=== PATIENT | female | born 1990 | race Caucasian/White ===

== ENCOUNTER → 2017-01-20 | Outpatient (CLI) | payer OTHER ==
[2017-01-20 10:12] LABS: CH 29.4; CHCM 34.5; HCT 35.2 % (34.0-46.0); HDW 2.89; HGB 12.4 gm/dL (11.4-16.0); MCH 30.3 pg (25.0-35.0); MCHC 35.3 g/dL (31.0-37.0); MCV 85.9 fL (80.0-100.0); Mean Platelet Volume 6.9; RDW 14.5 % (11.5-15.5); WBC 13.8 k/uL (3.8-10.6)
[2017-01-20 10:22] LABS: Glucose 88 mg/dL (74-99); Non-African American GFR(MDRD) >60 (>60 ml/min/1.73 sqM)
[2017-01-20 10:53] LABS: Hepatitis B Surface Ag Index 0.05
[2017-01-20 16:36] LABS: Treponemal Ab Non-Reactive (Non-Reactive)
[2017-01-21 03:27] LABS: Toxoplasma Antibody (IgG) <3.0 IU/mL (<7.2)
[2017-01-21 09:32] LABS: Alpha Fetoprotein 94.2 ng/mL; Alpha Fetoprotein (M.O.M) 1.58 (Negative); B-HCG (M.O.M.) 1.83; Gestational Age (days) 6; Human Chorionic Gonadotropin 28.2 IU/mL; Inhibin A (M.O.M.) 0.89; Interpretation SeeBelow; Maternal Age at EDD (Yrs) 25; Smoker No; Unconjugated Estriol (M.O.M.) 1.06
== END | disposition home or self-care (01) ==
LOC: LABWHC1 09:41
PROVIDERS: ATTEND Obstetrics & Gynecology
DX: Z34.82 Encounter for supervision of other normal pregnancy, second trimester (principal)
CPT/HCPCS: 36415; 82105; 82565; 82677; 82947; 84702; 85027; 86336; 86762; 86777; 86778; 86780; 86850; 86900; 86901; 87340; 87390

== ENCOUNTER → 2017-02-11 | Outpatient (CLI) | payer OTHER ==
[2017-02-11 11:18] LABS: CH 29.7; CHCM 33.3; HCT 33.3 % (34.0-46.0); HDW 3.11; HGB 11.1 gm/dL (11.4-16.0); MCHC 33.5 g/dL (31.0-37.0); MCV 89.8 fL (80.0-100.0); Mean Platelet Volume 7.3; RBC 3.71 m/uL (3.80-5.40); WBC 12.9 k/uL (3.8-10.6)
== END | disposition home or self-care (01) ==
LOC: LABWHC1 10:01
PROVIDERS: ATTEND Obstetrics & Gynecology
DX: Z34.82 Encounter for supervision of other normal pregnancy, second trimester (principal)
CPT/HCPCS: 36415; 82950; 85027

== ENCOUNTER 2017-04-11 19:01 | Outpatient (CLI) | payer OTHER ==
[2017-04-11 19:35] LABS: Glucose,Whole Blood 72 mg/dL (75-99)
[2017-04-11 21:00] VITALS: BP 131/79; PULSE 125; RESP 18; TEMP 97
[2017-04-11 21:16] LABS: Aty Lym Flag Moderate; CH 27.3; HCT 34.9 % (34.0-46.0); HDW 3.49; HGB 11.1 gm/dL (11.4-16.0); Hypochromasia Moderate; MCH 28.3 pg (25.0-35.0); MCHC 31.9 g/dL (31.0-37.0); MCV 88.7 fL (80.0-100.0); Mean Platelet Volume 6.7; Poikilocytosis Slight; RBC 3.93 m/uL (3.80-5.40); RDW 14.8 % (11.5-15.5); WBC 7.3 k/uL (3.8-10.6); WBC (Perox) 7.47
[2017-04-11 21:44] LABS: Add Differential Manual Differential
[2017-04-11 21:46] LABS: Nucleated Red Blood Cells 0 /100 WBC (0-0); Polychromasia Present; Total Cells Counted 100
--- NOTE | 2017-04-11 22:04 | P.MSEPDOC ---
Presenting Problems - Arrival Data Date of Arrival on Unit: 04/11/17 Time of Arrival on Unit: 19:01 Mode of Transport: Ambulatory - Complaint OB-Reason for Admission/Chief Complaint: Dizziness Medical History - Information : 2 Para: 1 Term: 1 : 0 Abortions: Spontaneous or Elective: 0 Number of Living Children: 1 Review of Systems - Review of Systems Constitutional: No problems Breast: No problems ENT: No problems Cardiovascular: No problems Respiratory: No problems Gastrointestinal: No problems Genitourinary: No problems Musculoskeletal: No problems Neurological: No problems Skin: No problems Vital Signs - Temperature Temperature: 97.0 F Temperature Source: Temporal Artery Scan - Pulse Right Pulse Rate: 125 Pulse Assessment Method: Pulse Oximetry - Respirations Respiratory Rate: 18 Oxygen Delivery Method: Room Air O2 Sat by Pulse Oximetry: 98 - Blood Pressure Right Arm Blood Pressure: 131/79 Blood Pressure Mean: 96 Blood Pressure Source: Automatic Cuff Medical Screen Scoring (Pre) - Cervical Exam Dilation: 0 cm = 0 Effacement: Exam Deferred Membranes: Intact - Uterine Contractions Frequency: N/A Duration: > 40 seconds = 2 Intensity: N/A - Maternal Vital Signs Maternal Temperature: N/A Maternal Blood Pressure: N/A Signs of Preeclampsia: N/A Maternal Respirations: N/A - Maternal Trauma Maternal Trauma: N/A - Assessment Baseline FHR: 148 Heart Rate - NICHD Category: Category I (Normal) = 0 NST: Reactive Position: N/A - Total Score Total Score (Pre): 2 - Level of Risk Level of Risk: Low (0-5) Physician Notification (Pre) - Physician Notified Physician Notified Date: 04/11/17 Physician Notified Time: 19:51 Physician/Practitioner Notifed:: Dr. Crook Spoke With: Dr. Crook New Order Received: Yes - Notification Comment Comment: Orders to wait for reactive FFN and cervical check. Disposition - Disposition OB Disposition: Discharge to home I agree with the RN Medical Screening Exam: Yes Risk & Benefit of care provided described in d/c instruction: Yes Diagnosis: FALSE LABOR BEFORE 37 COMPLETED WEEKS OF GEST, THIRD TRI
== END 2017-04-11 22:02 | disposition home or self-care (01) ==
LOC: FBPOP 19:01
PROVIDERS: ATTEND Obstetrics & Gynecology
DX: O47.03 False labor before 37 completed weeks of gestation, third trimester (principal); Z3A.33 33 weeks gestation of pregnancy
CPT/HCPCS: 59025; 84443; 85025; G0463; 99213

== ENCOUNTER 2017-04-13 10:23 | Outpatient (CLI) | payer OTHER ==
[2017-04-13] MEDS ORDERED: LACTATED RINGERS 1,000 ML IV SCH (11:00)
[2017-04-13 11:58] LABS: Potassium 3.7 mmol/L (3.5-5.1)
[2017-04-13 12:09] LABS: Aty Lym Flag Moderate; CH 27.3; CHCM 31.9; HDW 3.52; HGB 11.2 gm/dL (11.4-16.0); Hypochromasia Slight; MCH 27.7 pg (25.0-35.0); MCHC 32.2 g/dL (31.0-37.0); MCV 86.2 fL (80.0-100.0); Mean Platelet Volume 7.6; Poikilocytosis Slight; RBC 4.06 m/uL (3.80-5.40); WBC 6.1 k/uL (3.8-10.6); WBC (Perox) 6.06
[2017-04-13 12:14] LABS: Appearance,Urine Cloudy (Clear); Bacteria,Urine Rare /hpf; Bilirubin,Urine Negative (Negative); Glucose,Urine (UA) Negative (Negative); Ketones,Urine Negative (Negative); Leukocyte Esterase,Urine Large (Negative); Nitrite,Urine Negative (Negative); PH, Urine 6.5 (5.0-8.0); Particle Count 18964; Protein,Urine Negative (Negative); RBC,Urine 2 /hpf (0-5); Specific Gravity,Urine 1.004 (1.001-1.035); Squamous Epithelial Cell,Urine 11 /hpf (0-4); UA Billing (MACRO vs. MICRO) MICRO; Urobilinogen,Urine <2.0 mg/dL (<2.0); WBC,Urine 13 /hpf (0-5)
[2017-04-13 12:40] LABS: Add Differential Manual Differential
[2017-04-13 12:44] LABS: Manual Review Performed; Nucleated Red Blood Cells 0 /100 WBC (0-0); Total Cells Counted 100
[2017-04-13 13:15] VITALS: BP 125/74; PULSE 140; RESP 18; TEMP 98.3
--- NOTE | 2017-05-11 08:11 | P.MSEPDOC ---
Presenting Problems - Arrival Data Date of Arrival on Unit: 04/13/17 Time of Arrival on Unit: 10:25 Mode of Transport: Ambulatory - Complaint OB-Reason for Admission/Chief Complaint: Other Comment: pt came due to fever at 0430 this am of 102.7 Medical History - Information : 2 Para: 1 Term: 1 : 0 Abortions: Spontaneous or Elective: 0 Number of Living Children: 1 - Gestational Age Gestational Age by SABI (wks/days): 33 Weeks and 5 Days Review of Systems - Review of Systems Constitutional: No problems Breast: No problems ENT: No problems Respiratory: No problems Gastrointestinal: No problems Genitourinary: No problems Musculoskeletal: No problems Neurological: No problems Skin: No problems Vital Signs - Temperature Temperature: 98.3 F Temperature Source: Oral - Pulse Right Brachial Pulse Rate: 140 Pulse Assessment Method: Automatic Cuff - Respirations Respiratory Rate: 18 Oxygen Delivery Method: Room Air - Blood Pressure Right Arm Blood Pressure: 125/74 Blood Pressure Mean: 91 Medical Screen Scoring (Pre) - Uterine Contractions Frequency: > 5 minutes apart = 1 Duration: > 40 seconds = 2 Intensity: N/A - Maternal Vital Signs Maternal Temperature: N/A Signs of Preeclampsia: N/A Maternal Respirations: N/A - Maternal Trauma Maternal Trauma: N/A - Assessment Baseline FHR: 140 Heart Rate - NICHD Category: Category I (Normal) = 0 NST: Reactive Position: N/A Station: N/A - Total Score Total Score (Pre): 3 - Level of Risk Level of Risk: Low (0-5) Physician Notification (Pre) - Physician Notified Physician Notified Date: 04/13/17 Physician Notified Time: 10:53 Physician/Practitioner Notifed:: Dr. Huff Spoke With: Dr. Huff New Order Received: Yes - Notification Comment Comment: orders to obtain labs, flu swab, ffn cervical exam, and give IVF Medical Screen Scoring (Post) - Cervical Exam Dilation: 1-3 cm = 1 Membranes: Intact - Uterine Contractions Frequency: > 5 minutes apart = 1 Duration: > 40 seconds = 2 Intensity: N/A - Maternal Vital Signs Maternal Temperature: N/A Maternal Blood Pressure: N/A Signs of Preeclampsia: N/A Maternal Respirations: N/A - Maternal Trauma Maternal Trauma: N/A - Assessment Heart Rate: 140 Heart Rate - NICHD Category: Category I (Normal) = 0 NST: Reactive Position: N/A Station: N/A - Total Score Total Score (Post): 4 - Post Treatment Level of Risk Post Treatment Level of Risk: Low (0-5) Physician Notification (Post) - Physician Notified Physician Notified Date: 04/13/17 Physician Notified Time: 12:30 Physician/Practitioner Notified:: Dr. Huff Spoke With: Dr. Huff New Order Received: Yes - Notification Comment Comment: Dr. Huff given results of labs, and negative FFN, contracton pattern , orders to discharge pt home, Disposition - Disposition OB Disposition: Triage, Discharge to home, Written follow up instructions reviewed Discharge Date: 04/13/17 Discharge Time: 13:00 I agree with the RN Medical Screening Exam: Yes Risk & Benefit of care provided described in d/c instruction: Yes Diagnosis: FALSE LABOR AT OR AFTER 37 COMPLETED WEEKS OF GESTATION
== END 2017-04-13 13:00 | disposition home or self-care (01) ==
LOC: FBPOP 10:23
PROVIDERS: ATTEND Obstetrics & Gynecology
DX: O47.1 False labor at or after 37 completed weeks of gestation (principal); Z3A.33 33 weeks gestation of pregnancy
CPT/HCPCS: 59025; 96360; 96361; 93005; 82731; 80051; 85025; 81001; 87502; G0463; 99214

== ENCOUNTER 2017-04-20 12:15 | Inpatient (IN) | payer OTHER ==
[2017-04-20] MEDS ORDERED: SODIUM CHLORIDE 0.9% 500 ML IV STA (12:40)
[2017-04-20 13:20] LABS: Anisocytosis Slight; Aty Lym Flag Moderate; CH 28.3; CHCM 33.2; HCT 33.3 % (34.0-46.0); HDW 3.51; HGB 10.7 gm/dL (11.4-16.0); MCH 27.6 pg (25.0-35.0); MCHC 32.1 g/dL (31.0-37.0); Mean Platelet Volume 7.7; Poikilocytosis Slight; RBC 3.87 m/uL (3.80-5.40); RDW 17.5 % (11.5-15.5); WBC 5.6 k/uL (3.8-10.6); WBC (Perox) 5.99
[2017-04-20 13:21] LABS: ALT 87 U/L (9-52); AST 54 U/L (14-36); Alkaline Phosphatase 163 U/L (38-126); Anion Gap 8 mmol/L; Blood Urea Nitrogen 6 mg/dL (7-17); Calcium 8.2 mg/dL (8.4-10.2); Carbon Dioxide 23 mmol/L (22-30); Chloride 107 mmol/L (98-107); Glucose 96 mg/dL (74-99); Non-African American GFR(MDRD) >60 (>60 ml/min/1.73 sqM); Potassium 4.2 mmol/L (3.5-5.1); Sodium 138 mmol/L (137-145)
[2017-04-20 13:22] LABS: INR 0.9 (<1.2); Prothrombin Time 9.3 sec (9.0-12.0)
[2017-04-20] MEDS ORDERED: RX INFO: IV CONTRAST WAS GIVEN 1 EACH MISC MISCELLANE PRN (13:32)
--- NOTE | 2017-04-20 13:36 | XR ---
EXAMINATION TYPE: XR chest 2V DATE OF EXAM: 04/20/2017 COMPARISON: Chest x-ray August 06, 2012 HISTORY: Cough and shortness of breath TECHNIQUE: Frontal and lateral views of the chest are obtained. FINDINGS: There is poor inspiration with patchy lower lung opacities. No large pleural effusion or pneumothorax is seen bilaterally. The cardiac silhouette size is within normal limits. The osseous structures are intact. IMPRESSION: Poor inspiration with new patchy bibasilar infiltrate and/or atelectasis.
[2017-04-20 13:44] LABS: Add Differential Manual Differential
[2017-04-20 13:48] LABS: Manual Review Performed; Nucleated Red Blood Cells 0 /100 WBC (0-0); Total Cells Counted 100
[2017-04-20 13:51] LABS: Polychromasia Present
[2017-04-20 13:53] LABS: Reactive Lymphocytes Present
--- NOTE | 2017-04-20 14:14 | ED ---
SOB HPI - General Chief Complaint: Shortness of Breath Stated Complaint: SOB/Cough Time Seen by Provider: 04/20/17 12:32 Source: patient, RN notes reviewed Mode of arrival: ambulatory Limitations: no limitations - History of Present Illness Initial Comments: 27-year-old female presents emergency Department chief complaint shortness of breath. Patient states she's had increased shortness with the last 3 days with exertion. Patient was sent here from OBs office to rule out PE. She states she did dry hacking cough. Denies fever denies chills. No history of blood clots. Patient is A0. Patient states she is currently approximately 35 weeks . Patient denies any palpitations with the denies any dysuria, hematuria, abdominal pain. Patient denies any headache or dizziness. - Related Data Home Medications Medication Instructions Recorded Confirmed Acetaminophen Tab [Tylenol Tab] 650 mg PO Q4H PRN 04/20/17 04/20/17 Jxz-Mbyy-Apxmv Acid 1 cap PO DAILY 04/20/17 04/20/17 [-U Capsule (formulary)] Allergies Allergy/AdvReac Type Severity Reaction Status Date / Time No Known Allergies Allergy Verified 04/20/17 12:36 Review of Systems ROS Statement: Those systems with pertinent positive or pertinent negative responses have been documented in the HPI. ROS Other: All systems not noted in ROS Statement are negative. Past Medical History Past Medical History: No Reported History Additional Past Medical History / Comment(s): OB history: THis is her first and she has had care with me since 5 weeks. AB+, abs neg, Hep Bneg, RPR NR. normal 1hr GTT. GBS neg. History of Any Multi-Drug Resistant Organisms: None Reported Past Surgical History: No Surgical Hx Reported Past Anesthesia/Blood Transfusion Reactions: No Reported Reaction Past Psychological History: No Psychological Hx Reported Smoking Status: Never smoker Past Alcohol Use History: None Reported Past Drug Use History: None Reported General Exam Limitations: no limitations General appearance: alert, in no apparent distress Head exam: Present: atraumatic, normocephalic, normal inspection Neck exam: Present: normal inspection. Absent: tenderness, meningismus, lymphadenopathy Respiratory exam: Present: normal lung sounds bilaterally. Absent: respiratory distress, wheezes, rales, rhonchi, stridor Cardiovascular Exam: Present: normal rhythm, tachycardia, normal heart sounds. Absent: systolic murmur, diastolic murmur, rubs, gallop, clicks GI/Abdominal exam: Present: soft, normal bowel sounds. Absent: distended, tenderness, guarding, rebound, rigid Skin exam: Present: warm, dry, intact, normal color. Absent: rash Course Vital Signs 04/20/17 04/20/17 04/20/17 12:22 13:08 14:37 Temperature 97.8 F 98.4 F 98.7 F Pulse Rate 140 H 129 H 122 H Respiratory 20 18 18 Rate Blood Pressure 121/85 118/74 128/84 O2 Sat by Pulse 98 97 98 Oximetry Medical Decision Making - Medical Decision Making 27-year-old female presented for tachycardia, SOB, chest pain concern for possible PE. CT was nondiagnostic study. [facility] and [facility] for ultrasound the lower extremity, echo and further evaluation. - Lab Data Result diagrams: 04/20/17 13:00 04/20/17 13:00 Lab Results 04/20/17 04/20/17 04/20/17 Range/Units 13:00 13:00 13:00 WBC 5.6 (3.8-10.6) k/uL RBC 3.87 (3.80-5.40) m/uL Hgb 10.7 L (11.4-16.0) gm/dL Hct 33.3 L (34.0-46.0) % MCV 86.0 (80.0-100.0) fL MCH 27.6 (25.0-35.0) pg MCHC 32.1 (31.0-37.0) g/dL RDW 17.5 H (11.5-15.5) % Plt Count 153 (150-450) k/uL Neutrophils % (Manual) 47 % Lymphocytes % (Manual) 48 % Monocytes % (Manual) 4 % Eosinophils % (Manual) 1 % Neutrophils # (Manual) 2.63 (1.3-7.7) k/uL Lymphocytes # (Manual) 2.69 (1.0-4.8) k/uL Monocytes # (Manual) 0.22 (0-1.0) k/uL Eosinophils # (Manual) 0.06 (0-0.7) k/uL Nucleated RBCs 0 (0-0) /100 WBC Manual Slide Review Performed Reactive Lymphocytes Present Polychromasia Present Poikilocytosis Slight Anisocytosis Slight PT 9.3 (9.0-12.0) sec INR 0.9 (<1.2) APTT 23.0 (22.0-30.0) sec D-Dimer 21.06 H (<0.60) mg/L FEU Sodium 138 (137-145) mmol/L Potassium 4.2 (3.5-5.1) mmol/L Chloride 107 (98-107) mmol/L Carbon Dioxide 23 (22-30) mmol/L Anion Gap 8 mmol/L BUN 6 L (7-17) mg/dL Creatinine 0.50 L (0.52-1.04) mg/dL Est GFR (MDRD) Af Amer >60 (>60 ml/min/1.73 sqM) Est GFR (MDRD) Non-Af >60 (>60 ml/min/1.73 sqM) Glucose 96 (74-99) mg/dL Calcium 8.2 L (8.4-10.2) mg/dL Total Bilirubin 1.0 (0.2-1.3) mg/dL AST 54 H (14-36) U/L ALT 87 H (9-52) U/L Alkaline Phosphatase 163 H (38-126) U/L Total Protein 6.0 L (6.3-8.2) g/dL Albumin 2.8 L (3.5-5.0) g/dL 04/20/17 14:14 EKG performed at 12:53 sinus tachycardia rate of 132 ID 144 QRS 72 QT/QTc to 82/ 417 Disposition Clinical Impression: Tachycardia, Exertional shortness of breath, Disposition: ADMITTED IP TO THIS [facility] Condition: Stable Referrals: None,Stated [Primary Care Provider] - 1-2 days
--- NOTE | 2017-04-20 14:52 | CT ---
EXAMINATION TYPE: CT chest angio for PE DATE OF EXAM: 04/20/2017 COMPARISON: CTA chest August 06, 2012 HISTORY: SOB, cough CT DLP: 300.4 mGycm. Automated Exposure Control for Dose Reduction was Utilized. CONTRAST: CTA scan of the thorax is performed with IV Contrast, patient injected with 62 mL of Omnipaque 350, p ulmonary embolism protocol. MIP Images are created on CT scanner and reviewed. FINDINGS: LUNGS: There is new rectangular shaped atelectasis and/or infiltrate in the right lower lobe. Just grider perior to this there is new 5 x 3 mm nodule on axial image 73. There is additional linear scarring an d/or atelectasis in the left lung base and right middle lobe just above diaphragm. There is no pleur al effusion or pneumothorax seen bilaterally. The tracheobronchial tree is patent. MEDIASTINUM: There is suboptimal bolus with dense contrast noted in SVC and portions of right atrium. Exam is essentially nondiagnostic for pulmonary embolism There are no greater than 1 cm hilar or med iastinal lymph nodes. No cardiomegaly or pericardial effusion is seen. OTHER: Slightly prominent but subcentimeter lymph nodes are seen in the bilateral axillae inferiorly. IMPRESSION: 1. Suboptimal study, nondiagnostic for evaluation of pulmonary embolism. 2. Right lower lobe rectangular shaped atelectasis and/or infiltrate.
[2017-04-20] MEDS ORDERED: ENOXAPARIN 100 MG/ML SYRINGE SQ STA (15:34)
[2017-04-20] MEDS ORDERED: NALOXONE 0.4 MG/ML 1 ML VIAL IV PRN (15:35)
--- NOTE | 2017-04-20 16:46 | P.HPIM ---
History of Present Illness H&P Date: 04/20/17 Chief Complaint: Shortness of breath Patient is a 27-year-old female with a past medical history prior uncomplicated vaginal who presented to the ER at the direction of Dr. Huff for shortness of breath. In the ER she underwent an extensive evaluation. Her initial laboratory analysis was remarkable for slightly elevated liver enzymes and a positive d-dimer. She subsequently underwent CT PE protocol which unfortunately was nondiagnostic for PE but did show possible right lower lobe infiltrate. She was given a dose of Lovenox. Dr. Huff was contacted by the ER who agreed with the Lovenox dose. She will will be admitted to the general medical floor for observation. Mrs. Jennings states that last week she was quite sick she felt lightheaded, dizzy , had a fever. She was also experiencing night sweats and chills. She did present to labor and delivery triage and was subsequently discharged home, and she had no signs of labor. She states that her him Tums resolved last she began having shortness of breath with a dry cough. She states that it is worse with exertion and talking and better with rest. She states that she is not wheezing. She has not noted any abnormal leg swelling or pain in her legs. She has noted a runny nose. She states that no one is sick at home, but she does work in a daycare. She has been taking as needed Tylenol. She is 34 weeks 5 days currently. She states she has had an uncomplicated , but her platelets were low last week. She denies any family history of blood clots. Review of Systems General: + Fatigue, no fever/chills, no rigors, no weight loss/weight gain, no change in appetite Eyes: No double vision, no unusual blurry vision, no loss of vision ENT: + rhinorrhea, congestion, no trush Cardiovascular: No chest pain, no palpitations, no syncope, no edema, No paroxysmal nocturnal dyspnea, No dizziness Pulmonary: + Shortness of breath, no wheezing, + nonproductive cough, hemoptysis Abdominal: No abdominal pain, no constipation, no diarrhea, no vomiting, no nausea, no distention Genitourinary: No dysuria, no urinary frequency, no hematuria, no unusual discharge/odor Neuro: No unusual paresthesias, no unusual paresis/paralysis, no headache Dermatologic: No unusual rashes, no unusual lesions, no unusual changes in nails Endocrinology: No intolerance to heat/cold, no excessive thirst,] no unusual fatigue Hematologic: No unusual bruising or bleeding, no unusual cervical lymphadenopathy Psychiatric: No changes in mood or behaviors, no changes in sleep pattern Past Medical History Past Medical History: No Reported History Additional Past Medical History / Comment(s): 2, para 1 History of Any Multi-Drug Resistant Organisms: None Reported Past Surgical History: No Surgical Hx Reported Past Anesthesia/Blood Transfusion Reactions: No Reported Reaction Past Psychological History: No Psychological Hx Reported Smoking Status: Never smoker Past Alcohol Use History: None Reported Past Drug Use History: None Reported - Past Family History Father Additional Family Medical History / Comment(s): Paternal grandfather with heart problems, AICD, and hypertension Medications and Allergies Home Medications Medication Instructions Recorded Confirmed Type Acetaminophen Tab [Tylenol Tab] 650 mg PO Q4H PRN 04/20/17 04/20/17 History Glr-Bxpx-Fmfam Acid 1 cap PO DAILY 04/20/17 04/20/17 History [-U Capsule (formulary)] Allergies Allergy/AdvReac Type Severity Reaction Status Date / Time No Known Allergies Allergy Verified 04/20/17 12:36 Physical Exam Osteopathic Statement: *. No significant issues noted on an osteopathic structural exam other than those noted in the History and Physical/Consult. Vitals: Vital Signs Temp Pulse Resp BP Pulse Ox 04/20/17 14:37 98.7 F 122 H 18 128/84 98 04/20/17 13:08 98.4 F 129 H 18 118/74 97 04/20/17 12:22 97.8 F 140 H 20 121/85 98 Intake and Output 04/20/17 04/20/17 04/20/17 06:59 14:59 22:59 Other: Weight 99.337 kg Patient Weight 04/21/17 06:59 Weight 99.337 kg General: non toxic, mild distress, appears at stated age Derm: no rashes, no lesions, no ulcers, no unusual ecchymoses Head: atraumatic, normocephalic, symmetric Eyes: EOMI, no lid lag, anicteric sclera, pupils equal round reactive to light ENT: no post nasal drip, no thrush , nearest patent, no pharyngeal erythema Neck: No thyromegaly, no cervical lymphadenopathy, trachea midline, supple Mouth: no lip lesion, mucus membranes moist Cardiovascular: S1-S2 tachycardic, no murmur, positive posterior tibial pulse bilateral, no edema , no JVD, no clubbing, no cyanosis, capillary refill less than 2 seconds Lungs: Decreased breath sounds bilaterally, rhonchi right base , no accessory muscle use Abdominal: Gravid uterus, soft, nontender to palpation, no guarding, normal bowel sounds Ext: no gross muscle atrophy, muscle strength 5 out of 5 in all 4 extremities grossly, no contractures, Neuro: CN II-XI grossly intact, light touch intact all 4 extremities, finger to nose within normal limits, Psych: Alert, oriented, appropriate affect Results CBC & Chem 7: 04/20/17 13:00 04/20/17 13:00 Labs: Abnormal Lab Results - Last 24 Hours (Table) 04/20/17 04/20/17 04/20/17 Range/Units 13:00 13:00 13:00 Hgb 10.7 L (11.4-16.0) gm/dL Hct 33.3 L (34.0-46.0) % RDW 17.5 H (11.5-15.5) % D-Dimer 21.06 H (<0.60) mg/L FEU BUN 6 L (7-17) mg/dL Creatinine 0.50 L (0.52-1.04) mg/dL Calcium 8.2 L (8.4-10.2) mg/dL AST 54 H (14-36) U/L ALT 87 H (9-52) U/L Alkaline Phosphatase 163 H (38-126) U/L Total Protein 6.0 L (6.3-8.2) g/dL Albumin 2.8 L (3.5-5.0) g/dL Abdominal x-ray: report reviewed CT scan - chest: report reviewed Thrombosis Risk Factor Assmnt - DVT/VTE Prophylaxis DVT/VTE Prophylaxis: Mechanical Prophylaxis ordered Assessment and Plan Plan: Dyspnea -Differential includes pulmonary embolism versus pneumonia versus bronchitis -Does have a right-sided infiltrate however clinical picture is nondiagnostic of pneumonia she denies any current fevers chills, productive cough, her white blood cell count is within normal limits -Continue to monitor for fever, repeat blood count in a.m.- if either elevated will start antibiotic therapy -Albuterol for symptom control -Check lower extremity venous Dopplers and echocardiogram of the heart -Prophylactic Lovenox, was discussed with obstructive drinks by the ER 34 and 5/7 week , single gestation -Consult obstetrics Mildly elevated liver enzymes, likely secondary to hepatic congestion -CMP in a.m. Surrogate decision-maker: -Ralf Hernandez CODE STATUS: Full DVT prophylaxis: On full dose Lovenox Discussed with: Pt, ED physician, family Anticipated discharge: 24-[address]: home A total of 60 minutes was spent on the care of this complex patient more than 50 % of the time was spent in counseling and care coordination.
--- NOTE | 2017-04-20 16:56 | US ---
EXAMINATION TYPE: US venous doppler duplex LE DATE OF EXAM: 04/20/2017 4:45 PM COMPARISON: NONE CLINICAL HISTORY: Pain. Patient is almost 35 weeks . Bilateral feet tingling and heaviness. No hx of DVT or on blood thinners. Patient denies pain. No swelling. No redness. SIDE PERFORMED: Bilateral TECHNIQUE: The lower extremity deep venous system is examined utilizing real time linear array sonog tram with graded compression, doppler sonography and color-flow sonography. VESSELS IMAGED: External Iliac Vein (EIV) Common Femoral Vein Deep Femoral Vein Greater Saphenous Vein * Femoral Vein Popliteal Vein Small Saphenous Vein * Proximal Calf Veins (* superficial vessels) Right Leg: Appears negative for DVT Left Leg: Appears negative for DVT IMPRESSION: Normal exam. No evidence of deep venous thrombosis in both legs.
[2017-04-20] MEDS: SODIUM CHLORIDE 0.9% 1,000 ML IV SCH (16:58)
[2017-04-20 17:33] VITALS: BMI 33.3
[2017-04-20 18:17] LABS: Amorphous Sediment,Urine Occasional /hpf; Appearance,Urine Cloudy (Clear); Bilirubin,Urine Negative (Negative); Glucose,Urine (UA) Negative (Negative); Ketones,Urine 1+ (Negative); Leukocyte Esterase,Urine Large (Negative); Nitrite,Urine Negative (Negative); Particle Count 9654; Protein,Urine Trace (Negative); RBC,Urine 4 /hpf (0-5); Specific Gravity,Urine 1.036 (1.001-1.035); Squamous Epithelial Cell,Urine 46 /hpf (0-4); UA Billing (MACRO vs. MICRO) MICRO; WBC,Urine 78 /hpf (0-5)
[2017-04-20] MEDS: ACETAMINOPHEN TAB 325 MG TAB PO PRN (18:20)
[2017-04-20] MEDS: ALBUTEROL NEBULIZED 2.5 MG/3 ML INHALATION SCH (21:04)
[2017-04-21] MEDS: SODIUM CHLORIDE 0.9% 1,000 ML IV SCH ×2 (00:05→12:26)
[2017-04-21] MEDS: ENOXAPARIN 100 MG/ML SYRINGE SQ SCH ×2 (06:35→17:42)
[2017-04-21 06:47] LABS: Anisocytosis Slight; CH 27.4; CHCM 31.5; HCT 29.9 % (34.0-46.0); HDW 3.49; HGB 9.4 gm/dL (11.4-16.0); Hypochromasia Moderate; MCH 27.6 pg (25.0-35.0); MCHC 31.4 g/dL (31.0-37.0); MCV 87.9 fL (80.0-100.0); Mean Platelet Volume 7.1; Poikilocytosis Slight; RBC 3.41 m/uL (3.80-5.40); RDW 16.8 % (11.5-15.5); WBC 5.6 k/uL (3.8-10.6)
[2017-04-21 06:59] LABS: ALT 81 U/L (9-52); AST 44 U/L (14-36); Alkaline Phosphatase 142 U/L (38-126); Anion Gap 7 mmol/L; Blood Urea Nitrogen 3 mg/dL (7-17); Calcium 7.8 mg/dL (8.4-10.2); Carbon Dioxide 21 mmol/L (22-30); Chloride 110 mmol/L (98-107); Glucose 73 mg/dL (74-99); Non-African American GFR(MDRD) >60 (>60 ml/min/1.73 sqM); Potassium 4.1 mmol/L (3.5-5.1); Sodium 138 mmol/L (137-145); Total Bilirubin 0.8 mg/dL (0.2-1.3); Total Protein 5.3 g/dL (6.3-8.2)
[2017-04-21] MEDS ORDERED: ZOLPIDEM 5 MG TAB PO PRN (07:31)
--- NOTE | 2017-04-21 07:44 | P.OBCN ---
History of Present Illness Consult date: 04/21/17 Reason for consult: other () Chief complaint: shortness of breath, dry cough History of present illness: 27 year old presented at 34 weeks 5 days to my office yesterday with dry cough and shortness of breath. Last week she had been to triage with fever fatigue and some tachycardia. I had run some testing given her fluids her tachycardia had come down and fever resolved. She did not have a white blood cell count at that time she was discharged home was thought to be a viral illness. Her symptoms resolved on but then on Tuesday she developed shortness of breath and a dry cough. On Tuesday she presented to my office with the symptoms. The dyspnea and increased with just talking to me in the office. Assented to the emergency room for further workup. A CTA was inconclusive for PE, and Dopplers were negative. She was given dose of Lovenox though because she is tachycardic and tachypneic. She may have a lower lobe infiltrate but she does still not have a white count. She remains afebrile. The working diagnosis includes possible PE, possible pneumonia oh possible bronchitis. She remains with some shortness of breath and this dry cough. When I see her today she says that the dry cough is a little bit worse. She does have good movement, has a few contractions but no more than 3 in an hour. There is no leaking fluid and no vaginal bleeding. I'll have a nurse on labor and delivery come to her room and do a nonstress test today and daily while she is inpatient. I am waiting for the echocardiogram results. Review of Systems Constitutional: Reports fatigue, Denies chills, Denies fever Ears, nose, mouth and throat: Denies headache, Denies sinus pain, Denies sore throat Cardiovascular: Reports dyspnea on exertion, Reports shortness of breath, Denies chest pain, Denies irregular heart beat Respiratory: Reports cough, Denies wheezing Gastrointestinal: Denies abdominal pain, Denies nausea, Denies vomiting Neurological: Denies numbness, Denies weakness Past Medical History Past Medical History: No Reported History Additional Past Medical History / Comment(s): 2, para 1; history of one vaginal delivery. She's had good care with me since the first trimester. History of Any Multi-Drug Resistant Organisms: None Reported Past Surgical History: No Surgical Hx Reported Past Anesthesia/Blood Transfusion Reactions: No Reported Reaction Past Psychological History: No Psychological Hx Reported Smoking Status: Never smoker Past Alcohol Use History: None Reported Past Drug Use History: None Reported - Past Family History Father Additional Family Medical History / Comment(s): Paternal grandfather with heart problems, AICD, and hypertension Medications and Allergies Home Medications Medication Instructions Recorded Confirmed Type Acetaminophen Tab [Tylenol Tab] 650 mg PO Q4H PRN 04/20/17 04/20/17 History Ubb-Yebs-Wltmv Acid 1 cap PO DAILY 04/20/17 04/20/17 History [-U Capsule (formulary)] Allergies Allergy/AdvReac Type Severity Reaction Status Date / Time No Known Allergies Allergy Verified 04/20/17 12:36 Exam Osteopathic Statement: *. No significant issues noted on an osteopathic structural exam other than those noted in the History and Physical/Consult. - Vital Signs Vital signs: Vital Signs Temp Pulse Pulse Resp BP BP Pulse Ox 04/21/17 04:00 97.3 F L 105 H 16 93/54 98 04/21/17 00:00 97.2 F L 103 H 16 111/73 96 04/20/17 21:06 115 H 04/20/17 20:00 97.1 F L 124 H 16 116/64 97 04/20/17 18:05 118 H 04/20/17 16:56 97.5 F L 116 H 18 124/64 98 04/20/17 16:43 97.4 F L 115 H 18 120/70 100 04/20/17 14:37 98.7 F 122 H 18 128/84 98 04/20/17 13:08 98.4 F 129 H 18 118/74 97 04/20/17 12:22 97.8 F 140 H 20 121/85 98 Intake and Output 04/20/17 04/21/17 04/21/17 22:59 06:59 14:59 Intake Total 75 1150 Output Total 1400 Balance 75 -250 Intake: Intake, IV Titration 75 450 Amount Sodium Chloride 0.9% 1, 75 450 000 ml @ 75 mls/hr IV . [id number] KARLY Rx#:[id number] Oral 700 Output: Urine 1400 Other: Voiding Method Toilet Toilet # Voids 4 Weight 99.337 kg 97.9 kg Heart: Regular rate and rhythm Lungs: Clear to auscultation bilaterally Abdomen: Soft, nontender, gravid, fundal height 35cm Extremities: Negative Homans sign Results Result Diagrams: 04/21/17 06:24 04/21/17 06:24 Abnormal Lab Results - Last 24 Hours (Table) 04/20/17 04/20/17 04/20/17 Range/Units 13:00 13:00 13:00 RBC (3.80-5.40) m/uL Hgb 10.7 L (11.4-16.0) gm/dL Hct 33.3 L (34.0-46.0) % RDW 17.5 H (11.5-15.5) % D-Dimer 21.06 H (<0.60) mg/L FEU Chloride (98-107) mmol/L Carbon Dioxide (22-30) mmol/L BUN 6 L (7-17) mg/dL Creatinine 0.50 L (0.52-1.04) mg/dL Glucose (74-99) mg/dL Calcium 8.2 L (8.4-10.2) mg/dL AST 54 H (14-36) U/L ALT 87 H (9-52) U/L Alkaline Phosphatase 163 H (38-126) U/L Total Protein 6.0 L (6.3-8.2) g/dL Albumin 2.8 L (3.5-5.0) g/dL Urine Appearance (Clear) Ur Specific Chandler (1.001-1.035) Urine Protein (Negative) Urine Ketones (Negative) Ur Leukocyte Esterase (Negative) Urine WBC (0-5) /hpf Ur Squamous Epith Cells (0-4) /hpf Amorphous Sediment (None) /hpf Hyaline Casts (0-2) /lpf 04/20/17 04/21/17 04/21/17 Range/Units 18:00 06:24 06:24 RBC 3.41 L (3.80-5.40) m/uL Hgb 9.4 L (11.4-16.0) gm/dL Hct 29.9 L (34.0-46.0) % RDW 16.8 H (11.5-15.5) % D-Dimer (<0.60) mg/L FEU Chloride 110 H (98-107) mmol/L Carbon Dioxide 21 L (22-30) mmol/L BUN 3 L (7-17) mg/dL Creatinine 0.47 L (0.52-1.04) mg/dL Glucose 73 L (74-99) mg/dL Calcium 7.8 L (8.4-10.2) mg/dL AST 44 H (14-36) U/L ALT 81 H (9-52) U/L Alkaline Phosphatase 142 H (38-126) U/L Total Protein 5.3 L (6.3-8.2) g/dL Albumin 2.4 L (3.5-5.0) g/dL Urine Appearance Cloudy H (Clear) Ur Specific Chandler 1.036 H (1.001-1.035) Urine Protein Trace H (Negative) Urine Ketones 1+ H (Negative) Ur Leukocyte Esterase Large H (Negative) Urine WBC 78 H (0-5) /hpf Ur Squamous Epith Cells 46 H (0-4) /hpf Amorphous Sediment Occasional H (None) /hpf Hyaline Casts 3 H (0-2) /lpf Assessment and Plan (1) Exertional shortness of breath Status: Acute (2) Status: Acute Plan: 1. I will Continue to follow this patient along with the hospitalist 2. Awaiting echocardiogram results 3. If it does cross tie turner that she needs anticoagulation on an outpatient basis, since she is so far along, I would recommend that she be placed on heparin since that can be reversed if she does go into labor. 4. While she is inpatient she'll have an NST daily for surveillance 5. She had difficulty sleeping last night so I did place an order for Ambien as needed.
[2017-04-21] MEDS ORDERED: SODIUM CHLORIDE 0.45% 1,000 ML IV SCH (08:15)
[2017-04-21] MEDS: ALBUTEROL NEBULIZED 2.5 MG/3 ML INHALATION SCH ×2 (08:38→09:06)
[2017-04-21 09:24] VITALS: RESP 18
--- NOTE | 2017-04-21 09:34 | XR ---
EXAMINATION TYPE: XR chest 2V DATE OF EXAM: 04/21/2017 COMPARISON: 04/20/2017 HISTORY: Shortness of breath and pneumonia TECHNIQUE: Frontal and lateral views of the chest are obtained. FINDINGS: Focal airspace disease within the right lower lobe is linear in orientation with secondary volume loss of the right lung and right hemidiaphragm elevation favoring atelectasis rather than pne umonia. No pleural effusion or pneumothorax seen. The cardiac silhouette size is within normal limit s. The osseous structures are intact. IMPRESSION: Findings favor atelectasis rather than pneumonia although pneumonia is possible in the appropriate cl inical setting.
--- NOTE | 2017-04-21 09:42 | ECHOF ---
Referral Reason: MEASUREMENTS -------- HEIGHT: 172.7 cm WEIGHT: 99.3 kg BP: RVIDd: 2.8 cm (< 3.3) IVSd: 1.0 cm (0.6 - 1.1) LVIDd: 4.9 cm (3.9 - 5.3) LVPWd: 0.9 cm (0.6 - 1.1) IVSs: 1.0 cm LVIDs: 3.6 cm LVPWs: 1.2 cm LA Diam: 3.5 cm (2.7 - 3.8) Ao Diam: 3.1 cm (2.0 - 3.7) AV Cusp: 2.0 cm (1.5 - 2.6) LA Diam: 3.2 cm (2.7 - 3.8) MV EXCURSION: 26.790 mm (> 18.000) MV EF SLOPE: 150 mm/s (70 - 150) EPSS: 0.1 cm MV E Steven: 0.46 m/s MV DecT: 214 ms MV A Steven: 1.15 m/s MV E/A Ratio: 0.39 RAP: 5.00 mmHg RVSP: 22.18 mmHg FINDINGS -------- Sinus rhythm. This was a technically adequate study. LV size, wall thickness and systolic function are normal, with an EF greater than 55%. The right ventricle is normal in size. The left atrial size is normal. The right atrial size is normal. The aortic valve is trileaflet, and appears structurally normal. No aortic stenosis or regurgitation. Mild mitral regurgitation is present. Mild tricuspid regurgitation present. There is no evidence of pulmonary hypertension. The right ventricular systolic pressure, as measured by Doppler, is 22.18mmHg. There is no pulmonic regurgitation present. The aortic root size is normal. There is no pericardial effusion. CONCLUSIONS -------- 1. LV size, wall thickness and systolic function are normal, with an EF greater than 55%. 2. The aortic valve is trileaflet, and appears structurally normal. No aortic stenosis or regurgitation. 3. Mild mitral regurgitation is present. 4. Mild tricuspid regurgitation present. 5. There is no evidence of pulmonary hypertension. 6. The right ventricular systolic pressure, as measured by Doppler, is 22.18mmHg. 7. There is no pulmonic regurgitation present. 8. The aortic root size is normal. 9. There is no pericardial effusion. WELFARE SPECIALIST: Tiffany Lewis RDCS
--- NOTE | 2017-04-21 11:31 | P.PN ---
Subjective Progress Note Date: 04/21/17 Principal diagnosis: Patient is a 27-year-old female with a past medical history prior uncomplicated vaginal who presented to the ER at the direction of Dr. Huff for shortness of breath. In the ER she underwent an extensive evaluation. Her initial laboratory analysis was remarkable for slightly elevated liver enzymes and a positive d-dimer. She subsequently underwent CT PE protocol which unfortunately was nondiagnostic for PE but did show possible right lower lobe infiltrate. She was given a dose of Lovenox. Dr. Huff was contacted by the ER who agreed with the Lovenox dose. She was admitted to the general medical floor for observation. She underwent lower extremity Dopplers which were negative. Echocardiogram was negative. She received IV fluids, and had a repeat chest x-ray which showed the same area of likely atelectasis. She received a child albuterol which not improve her dyspnea. Patient seen and examined at bedside with family present. She continues to have shortness of breath. She states she thought the albuterol treatment helped her last evening when she received 1, however this morning it did not seem to help. She is still feeling quite dyspneic worse with exertion and better with rest. She is not having any chest pain. She does report that the baby is moving. She continues to have a cough that is nonproductive. Objective - Vital Signs Vital signs: Vital Signs Temp 97.5 F L 04/21/17 08:00 Pulse 100 04/21/17 09:19 Resp 18 04/21/17 08:00 BP 115/67 04/21/17 08:00 Pulse Ox 96 04/21/17 08:00 Intake & Output 04/20/17 04/21/17 04/21/17 18:59 06:59 18:59 Intake Total 75 1150 200 Output Total 1400 Balance 75 -250 200 Weight 99.337 kg 97.9 kg Intake: Intake, IV Titration 75 450 Amount Sodium Chloride 0.9% 1, 75 450 000 ml @ 75 mls/hr IV . [id number] KARLY Rx#:[id number] Oral 700 200 Output: Urine 1400 Other: Voiding Method Toilet # Voids 4 - Exam General: non toxic, mild distress, appears at stated age Derm: no rashes, no lesions Head: atraumatic, normocephalic, symmetric Eyes: EOMI, no lid lag, anicteric sclera ENT: no post nasal drip, no thrush Mouth: no lip lesion, mucus membranes moist Cardiovascular: S1S2 reg, no murmur, positive posterior tibial pulse bilateral, Lungs: Decreased breath sounds bilateral bases, no rhonchi, no rales , no accessory muscle use Abdominal: soft, nontender to palpation, no guarding, gravid uterus Ext: no gross muscle atrophy, no edema, no contractures Neuro: CN II-XI grossly intact, no focal neuro deficits Psych: Alert, oriented, appropriate affect - Labs CBC & Chem 7: 04/21/17 06:24 04/21/17 06:24 Labs: Abnormal Lab Results - Last 24 Hours (Table) 04/20/17 04/20/17 04/20/17 Range/Units 13:00 13:00 13:00 RBC (3.80-5.40) m/uL Hgb 10.7 L (11.4-16.0) gm/dL Hct 33.3 L (34.0-46.0) % RDW 17.5 H (11.5-15.5) % D-Dimer 21.06 H (<0.60) mg/L FEU Chloride (98-107) mmol/L Carbon Dioxide (22-30) mmol/L BUN 6 L (7-17) mg/dL Creatinine 0.50 L (0.52-1.04) mg/dL Glucose (74-99) mg/dL Calcium 8.2 L (8.4-10.2) mg/dL AST 54 H (14-36) U/L ALT 87 H (9-52) U/L Alkaline Phosphatase 163 H (38-126) U/L Total Protein 6.0 L (6.3-8.2) g/dL Albumin 2.8 L (3.5-5.0) g/dL Urine Appearance (Clear) Ur Specific [place] (1.001-1.035) Urine Protein (Negative) Urine Ketones (Negative) Ur Leukocyte Esterase (Negative) Urine WBC (0-5) /hpf Ur Squamous Epith Cells (0-4) /hpf Amorphous Sediment (None) /hpf Hyaline Casts (0-2) /lpf 04/20/17 04/21/17 04/21/17 Range/Units 18:00 06:24 06:24 RBC 3.41 L (3.80-5.40) m/uL Hgb 9.4 L (11.4-16.0) gm/dL Hct 29.9 L (34.0-46.0) % RDW 16.8 H (11.5-15.5) % D-Dimer (<0.60) mg/L FEU Chloride 110 H (98-107) mmol/L Carbon Dioxide 21 L (22-30) mmol/L BUN 3 L (7-17) mg/dL Creatinine 0.47 L (0.52-1.04) mg/dL Glucose 73 L (74-99) mg/dL Calcium 7.8 L (8.4-10.2) mg/dL AST 44 H (14-36) U/L ALT 81 H (9-52) U/L Alkaline Phosphatase 142 H (38-126) U/L Total Protein 5.3 L (6.3-8.2) g/dL Albumin 2.4 L (3.5-5.0) g/dL Urine Appearance Cloudy H (Clear) Ur Specific [place] 1.036 H (1.001-1.035) Urine Protein Trace H (Negative) Urine Ketones 1+ H (Negative) Ur Leukocyte Esterase Large H (Negative) Urine WBC 78 H (0-5) /hpf Ur Squamous Epith Cells 46 H (0-4) /hpf Amorphous Sediment Occasional H (None) /hpf Hyaline Casts 3 H (0-2) /lpf Assessment and Plan Plan: Dyspnea and tachycardia -Differential includes pulmonary embolism versus bronchitis -Does have a right-sided infiltrate, radiology states this appears more like atelectasis. Clinical picture is also nondiagnostic of pneumonia or bronchitis she denies any current fevers chills, productive cough, her white blood cell count is within normal limits. She also failed trial of albuterol therapy. Discussed this case with Dr. Huff at length. We are still having significant concern that she may have a pulmonary embolism. There is wrists with treating her with anticoagulation despite not having a definitive diagnosis as this could lead to increased risk of bleeding and increased risk of intracranial hemorrhage for the baby at the time of delivery. In order to seek a definitive diagnosis and have the benefits outweigh the risks of long-term anticoagulation Dr. Huff and myself have come to the conclusion that we should repeat a CTA of the chest in the morning after fluid hydration. This should give her adequate time to clear the contrast from her system before repeat contrast bolus. Also a CT of the chest has less radiation dose than a traditional VQ scan. -Continue to monitor for fever, repeat blood count in a.m - lower extremity venous Dopplers negative and echocardiogram of the heart negative -Continue with empiric Lovenox 34 and 6/7 week , single gestation -Obstetrics recommendations Mildly elevated liver enzymes, secondary to hepatic congestion DVT prophylaxis: On full dose Lovenox Discussed with: Pt, family, Dr. Huff Anticipated discharge: [address]: home A total of 40 minutes was spent on the care of this complex patient more than 50 % of the time was spent in counseling and care coordination.
[2017-04-21] MEDS: SODIUM CHLORIDE 0.45% 1,000 ML IV SCH ×2 (12:28→19:46)
[2017-04-21] MEDS: PRENATAL VIT-IRON-FOLIC ACID 1 EACH CAP PO SCH (12:33)
[2017-04-21] MEDS: ALBUTEROL NEBULIZED 2.5 MG/3 ML INHALATION PRN ×2 (13:11→21:05)
[2017-04-21] MEDS: ACETAMINOPHEN TAB 325 MG TAB PO PRN ×2 (13:36→19:45)
[2017-04-22] MEDS: SODIUM CHLORIDE 0.45% 1,000 ML IV SCH ×2 (04:33→13:28)
[2017-04-22] MEDS: ENOXAPARIN 100 MG/ML SYRINGE SQ SCH ×2 (06:28→17:14)
[2017-04-22 07:11] LABS: Anisocytosis Slight; CHCM 31.8; HCT 29.4 % (34.0-46.0); HDW 3.52; HGB 9.2 gm/dL (11.4-16.0); Hypochromasia Slight; MCH 27.8 pg (25.0-35.0); MCHC 31.2 g/dL (31.0-37.0); MCV 89.1 fL (80.0-100.0); Mean Platelet Volume 7.6; Poikilocytosis Slight; RDW 17.8 % (11.5-15.5); WBC 5.9 k/uL (3.8-10.6)
[2017-04-22 07:18] LABS: ALT 76 U/L (9-52); AST 42 U/L (14-36); Alkaline Phosphatase 139 U/L (38-126); Anion Gap 7 mmol/L; Blood Urea Nitrogen 3 mg/dL (7-17); Calcium 7.6 mg/dL (8.4-10.2); Carbon Dioxide 20 mmol/L (22-30); Chloride 110 mmol/L (98-107); Glucose 86 mg/dL (74-99); Non-African American GFR(MDRD) >60 (>60 ml/min/1.73 sqM); Potassium 4.1 mmol/L (3.5-5.1); Sodium 137 mmol/L (137-145); Total Bilirubin 0.8 mg/dL (0.2-1.3); Total Protein 5.4 g/dL (6.3-8.2)
[2017-04-22] MEDS ORDERED: RX INFO: IV CONTRAST WAS GIVEN 1 EACH MISC MISCELLANE PRN (07:53)
--- NOTE | 2017-04-22 09:02 | P.PN ---
Progress Note - Text Progress Note Date: 04/22/17 Patient seen and examined at bedside. She states her breathing is unchanged. Still feeling short of breath, still having a nonproductive cough. Feeling the baby moving. Feeling otherwise normal. Vital signs reviewed and are stable General: non toxic, mild distress, appears at stated age Derm: no rashes, no lesions Head: atraumatic, normocephalic, symmetric Eyes: EOMI, no lid lag, anicteric sclera ENT: no post nasal drip, no thrush Mouth: no lip lesion, mucus membranes moist Cardiovascular: S1S2 reg, no murmur, positive posterior tibial pulse bilateral, Lungs: Decreased breath sounds bilateral bases, no rhonchi, no rales , no accessory muscle use Abdominal: soft, nontender to palpation, no guarding, gravid uterus Ext: no gross muscle atrophy, no edema, no contractures Neuro: CN II-XI grossly intact, no focal neuro deficits Psych: Alert, oriented, appropriate affect Dyspnea, concern for pulmonary embolism -CTA chest ordered, IV fluids continued Await results of CT of the chest likely home today. Formal note and discharge summary to follow.
[2017-04-22] MEDS: PRENATAL VIT-IRON-FOLIC ACID 1 EACH CAP PO SCH (11:09)
[2017-04-22] MEDS: ACETAMINOPHEN TAB 325 MG TAB PO PRN (11:12)
--- NOTE | 2017-04-22 11:12 | CT ---
EXAMINATION TYPE: CT chest angio for PE DATE OF EXAM: 04/22/2017 COMPARISON: 04/20/2017 HISTORY: 27-year-old female shortness of breath, evaluate for pulmonary embolism TECHNIQUE: Contiguous axial scanning of the chest performed with IV Contrast, patient injected with 1 00 mL of Omnipaque 350. Coronal/sagittal MIP reconstructions performed. The fetus was shielded. CT DLP: 390.80 mGycm Automated exposure control for dose reduction was used. FINDINGS: Heart is normal size without pericardial effusion. Aorta normal caliber with bovine configuration to the aortic arch. Nondiagnostic opacification of the pulmonary arterial system. No thoracic lymphadenopathy by CT size criteria. Evaluation the lungs redemonstrates the platelike opacity extending along the right lower lobe from t he major fissure to the subpleural surface. This is slightly thicker in the interval. No consolidation or pleural effusion otherwise seen. Small hiatal hernia. Visualized upper abdomen shows mild splenomegaly at 14.1 cm. Bones: No osseous destructive process seen. IMPRESSION: 1. THE EXAM REMAINS NONDIAGNOSTIC FOR ASSESSMENT OF PULMONARY EMBOLUS. THIS IS DESPITE EXTENSIVE COAC ROC ON APPROPRIATE BREATHING MANEUVERS. 2. PLATELIKE ATELECTASIS OR INFILTRATE IN THE RIGHT LOWER LOBE IS REDEMONSTRATED AND IS MINIMALLY THI CKER.
[2017-04-22 16:34] VITALS: BP 123/72; PULSE 106; TEMP 97.2
--- NOTE | 2017-04-22 16:36 | P.DS ---
Providers Date of admission: 04/20/17 15:55 Expected date of discharge: 04/22/17 Attending physician: Nata Huston, DO Consults: 04/20/17 15:36 Consult Physician Urgent Consulting Provider: Connie Huff Consult Reason/Comments: Do you want consulting provider notified?: Yes Primary care physician: Stated None Hospital Course: Patient is a 27-year-old female with a past medical history prior uncomplicated vaginal who presented to the ER at the direction of Dr. Huff for shortness of breath. In the ER she underwent an extensive evaluation. Her initial laboratory analysis was remarkable for slightly elevated liver enzymes and a positive d-dimer. She subsequently underwent CT PE protocol which unfortunately was nondiagnostic for PE but did show possible right lower lobe infiltrate. She was given a dose of Lovenox. Dr. Huff was contacted by the ER who agreed with the Lovenox dose. She was admitted to the general medical floor for observation. She underwent lower extremity Dopplers which were negative. Echocardiogram was negative. She received IV fluids, and had a repeat chest x-ray which showed the same area of likely atelectasis. She received a trial of albuterol which not improve her dyspnea. I discussed this case with Dr. Huff at length. We are still having significant concern that she may have a pulmonary embolism. There is risks with treating her with anticoagulation despite not having a definitive diagnosis as this could lead to increased risk of bleeding and increased risk of intracranial hemorrhage for the baby at the time of delivery. In order to seek a definitive diagnosis and have the benefits outweigh the risks of long-term anticoagulation Dr. Huff and myself came to the conclusion that we should repeat a CTA of the chest in the morning after fluid hydration. This would give her adequate time to clear the contrast from her system before repeat contrast bolus. Also a CT of the chest has less radiation dose than a traditional VQ scan. Unfortunately the second CT PE protocol was also non diagnostic. I again discussed the case with Dr. Huff and we elected that the patient should be treated with long-term anticoagulation as the benefits are greater than the risks. Ideally she will need subcutaneous heparin as she gets closer to delivery secondary to minimize any bleeding risks. I discussed this with Dr. Jeffrey who recommended at least 7 days of Lovenox anticoagulation to ensure that she has therapeutic levels in her system for the first [address] Huff was in agreement with this plan. She was subsequently be treated with subcutaneous heparin for the duration of her after this. I discussed this with the patient, her , and her mother. They are all in agreement with the plan. She will subsequently be discharged home. She does understand the importance of taking her anticoagulant are not missing any doses. She will also follow-up with Dr. vivian saravia in approximately one week. Vital signs reviewed and stable. Physical exam see progress note same date A total of 45 minutes of time were spent preparing this complex discharge summary . Pertinent Studies: CT PE protocol nondiagnostic 2 Bilateral lower extremity venous Dopplers-no obstructive thrombus Echocardiogram-within normal limits Patient Condition at Discharge: Stable Plan - Discharge Summary New Discharge Prescriptions: New Enoxaparin [Lovenox] 100 mg SQ Q12H #20 syr Continue Pzr-Tspm-Ammeu Acid [-U Capsule (formulary)] 1 cap PO DAILY Acetaminophen Tab [Tylenol] 650 mg PO Q4H PRN PRN Reason: Pain Or Fever > 100.5 Discharge Medication List Acetaminophen Tab [Tylenol] 650 mg PO Q4H PRN 04/20/17 [History] Cfq-Jldg-Pytpu Acid [-U Capsule (formulary)] 1 cap PO DAILY 05/27 [History] Enoxaparin [Lovenox] 100 mg SQ Q12H #20 syr 04/22/17 [Rx] Follow up Appointment(s)/Referral(s): Michael Jeffrey MD [STAFF PHYSICIAN] - 05/03/17 3:30 pm (Transition to subcutaneous heparin.) Connie Huff DO [Doctor of Osteopathic Medicine] - 04/29/17 10:15 am None,Stated [Primary Care Provider] - 1-2 days Patient Instructions/Handouts: How to Give a Subcutaneous Injection (DC), Safe Use of Anticoagulants (DC) Activity/Diet/Wound Care/Special Instructions: regular diet activity as tolerated. Please do not miss any doses of your lovenox. Discharge Disposition: HOME SELF-CARE
== END 2017-04-22 18:00 | disposition home or self-care (01) | DRG 566 ==
LOC: EC 12:15 → 6SEL 15:55
PROVIDERS: ADMIT Internal Medicine; ATTEND Internal Medicine
DX: O88.213 Thromboembolism in pregnancy, third trimester (principal); K76.89 Other specified diseases of liver; O26.613 Liver and biliary tract disorders in pregnancy, third trimester; O99.513 Diseases of the respiratory system complicating pregnancy, third trimester; J98.11 Atelectasis; Z3A.35 35 weeks gestation of pregnancy; Z82.49 Family history of ischemic heart disease and other diseases of the circulatory system
CPT/HCPCS: 36415; 71020; 71275; 80053; 81001; 85025; 85027; 85379; 85610; 85730; 93005; 93306; 93970; 94640; 96360; 96372; 99285

== ENCOUNTER → 2017-04-29 | Outpatient (CLI) | payer OTHER ==
--- NOTE | 2017-04-29 08:47 | US ---
EXAMINATION TYPE: US OB anatomy transabd DATE OF EXAM: 04/29/2017 COMPARISON: NONE HISTORY: O36.63X0 LARGE FOR DATES TECHNIQUE: Transabdominal (TA) EXAM MEASUREMENTS: GESTATIONAL AGE / DATING Physician Established: (36 weeks/0 days) EDC: 05/27/2017 Dates by LMP: (36 weeks/0 days) EDC: 05/27/2017 Dates by First Scan: No previous at this facility Dates by Current Scan for: (36 weeks/0 days) EDC: 05/27/2017 SURVEY IUP: Single PLACENTA: Fundal PREVIA: No previa CHRISTELLE: 17.6 cm Normal CERVICAL LENGTH (transabdominal: norm > 3.0cm): 3.1 cm BIOMETRY PRESENTATION: Vertex LIE: Longitudinal BPD: 9.2 cm 37 weeks / 2 days HC: 32.9 cm 37 weeks / 2 days AC: 31.94 cm 35 weeks / 6 days FL: 6.9 cm 35 weeks / 3 days ESTIMATED WEIGHT IN GRAMS: 2838 grams ESTIMATED WEIGHT IN LBS/OZ: 6 lbs. 4 oz. WEIGHT PERCENTAGE BASED ON ESTABLISHED DATE: 52.7 % HC/AC: 1.03 Normal FL/AC: 21.6 Normal HEART RATE: 137 bpm RHYTHM: Normal ANATOMY SEEN (within normal limits): * Lateral Vent (< 1 cm) 0.5 cm Choroid Plexus (bilateral) Stomach Situs Nose / Lips Diaphragm Kidneys (bilateral) Bladder Three Vessel Cord REMAINING ANATOMY NOT SEEN due to advanced age and crowding: IMPRESSION: Viable IUP, measurements congruent with dates.
== END | disposition home or self-care (01) ==
LOC: RADUSWWP 07:51
PROVIDERS: ATTEND Obstetrics & Gynecology
DX: O36.63X0 Maternal care for excessive fetal growth, third trimester, not applicable or unspecified (principal); Z3A.36 36 weeks gestation of pregnancy
CPT/HCPCS: 76805

== ENCOUNTER 2017-05-20 06:00 | Inpatient (IN) | payer OTHER ==
[2017-05-20] MEDS ORDERED: LIDOCAINE 1% (PF) 10 MG/ML (30 ML SDV) SQ PRN (06:39)
[2017-05-20] MEDS ORDERED: OXYTOCIN 20 UNITS/1000 ML NS 1,000 ML IV SCH ×2 (06:39→12:15)
[2017-05-20] MEDS ORDERED: TERBUTALINE 1 MG/ML VIAL SQ PRN (06:39)
[2017-05-20] MEDS ORDERED: OXYTOCIN 10 UNIT/ML 1 ML VIAL IM PRN (06:39)
[2017-05-20] MEDS ORDERED: METHYLERGONOVINE 0.2 MG/ML 1 ML AMP IM PRN (06:39)
[2017-05-20] MEDS ORDERED: CARBOPROST TROMETHAMINE 250 MCG/ML 1 ML AMP IM PRN (06:39)
[2017-05-20 06:53] VITALS: BMI 32.1
[2017-05-20 06:56] LABS: Anisocytosis Slight; Basophils % (A) 1 %; CH 26.6; CHCM 31.6; Eosinophils # (A) 0.1 k/uL (0-0.7); Eosinophils % (A) 1 %; HCT 34.2 % (34.0-46.0); HDW 2.98; HGB 10.7 gm/dL (11.4-16.0); Hypochromasia Slight; Luc % (Auto) 3; Lymphocytes # (A) 2.8 k/uL (1.0-4.8); Lymphocytes % (A) 31 %; MCH 26.6 pg (25.0-35.0); MCHC 31.4 g/dL (31.0-37.0); MCV 84.5 fL (80.0-100.0); Mean Platelet Volume 7.7; Monocytes # (A) 0.7 k/uL (0-1.0); Monocytes % (A) 7 %; Neutrophils # (A) 5.1 k/uL (1.3-7.7); Neutrophils % (A) 57 %; RBC 4.05 m/uL (3.80-5.40); RDW 16.8 % (11.5-15.5); WBC (Perox) 9.32
[2017-05-20 07:04] LABS: INR 0.9 (<1.2); Partial Thromboplastin Time 32.6 sec (22.0-30.0); Prothrombin Time 9.3 sec (9.0-12.0)
[2017-05-20] MEDS: LACTATED RINGERS 1,000 ML IV SCH ×2 (07:13→10:36)
[2017-05-20] MEDS ORDERED: SODIUM CHLORIDE 0.9% 100 ML BAG ONE (10:15)
[2017-05-20] MEDS ORDERED: BUPIVACAINE (PF) 0.25% 30 ML VIAL ONE (10:15)
[2017-05-20] MEDS ORDERED: fentaNYL (PF) 50 MCG/ML 5 ML AMP ONE (10:15)
[2017-05-20] MEDS ORDERED: BUPIVACAINE (PF) 0.25% 25 ML, fentaNYL (PF) 200 MCG in SODIUM CHLORIDE 0.9% 71 ML EPIDURAL ONE (11:16)
[2017-05-20] MEDS ORDERED: LANOLIN CREAM 5 GM TUBE TOPICAL PRN (12:07)
[2017-05-20] MEDS ORDERED: SIMETHICONE 80 MG CHEWABLE PO PRN (12:07)
[2017-05-20] MEDS ORDERED: diphenhydrAMINE 25 MG CAP PO PRN (12:07)
[2017-05-20] MEDS ORDERED: diphenhydrAMINE 50 MG/ML 1 ML VIAL IVP PRN ×2 (12:07)
[2017-05-20] MEDS ORDERED: ZOLPIDEM 5 MG TAB PO PRN (12:07)
[2017-05-20] MEDS ORDERED: HYDROCORTISONE 2.5% RECTAL CREAM 30 GM TUBE RECTAL PRN (12:07)
[2017-05-20] MEDS ORDERED: diphenhydrAMINE 50 MG CAP PO PRN (12:07)
[2017-05-20] MEDS ORDERED: Acetaminophen-Codeine 300-30mg TAB PO PRN ×2 (12:07)
[2017-05-20] MEDS ORDERED: ACETAMINOPHEN TAB 325 MG TAB PO PRN (12:07)
[2017-05-20] MEDS ORDERED: BENZOCAINE/MENTHOL SPRAY 1 GM/SPRAY AEROSOL TOPICAL PRN (12:07)
[2017-05-20] MEDS ORDERED: WITCH HAZEL 1 EACH MED..PAD TOPICAL PRN (12:07)
--- NOTE | 2017-05-20 12:24 | P.HPOB ---
History of Present Illness H&P Date: 05/20/17 Chief Complaint: Induction of labor 27-year-old presents at 39 weeks for induction of labor. Her cervix is 3- 4 cm dilated, 70% effaced, -2 station. She is not mine. heart tones 135-140 with moderate variability and reactive. Patient did have a pulmonary Allis with this and she's been on heparin until yesterday morning. Review of Systems All systems: negative Constitutional: Denies chills, Denies fever Eyes: denies blurred vision, denies pain Ears, nose, mouth and throat: Denies headache, Denies sore throat Cardiovascular: Denies chest pain, Denies shortness of breath Respiratory: Denies cough Gastrointestinal: Denies abdominal pain, Denies diarrhea, Denies nausea, Denies vomiting Genitourinary: Denies dysuria, Denies hematuria Musculoskeletal: Denies myalgias Integumentary: Denies pruritus, Denies rash Neurological: Denies numbness, Denies weakness Psychiatric: Denies anxiety, Denies depression Endocrine: Denies fatigue, Denies weight change Past Medical History Past Medical History: No Reported History Additional Past Medical History / Comment(s): 2, para 1; history of one vaginal delivery. She's had good care with me since the first trimester. AB+, antibodies negative, rubella immune, treponema antibody negative, hepatitis B-, HIV nonreactive, toxo negative, normal 1 hour glucose tolerance test. Diagnosed with a pulmonary embolus around 34 weeks gestation. She was on Lovenox at first and then changed to heparin. GBS negative. History of Any Multi-Drug Resistant Organisms: None Reported Past Surgical History: No Surgical Hx Reported Past Anesthesia/Blood Transfusion Reactions: No Reported Reaction Past Psychological History: No Psychological Hx Reported Smoking Status: Never smoker Past Alcohol Use History: None Reported Past Drug Use History: None Reported - Past Family History Father Additional Family Medical History / Comment(s): Paternal grandfather with heart problems, AICD, and hypertension Medications and Allergies Home Medications Medication Instructions Recorded Confirmed Type Acetaminophen Tab [Tylenol] 650 mg PO Q4H PRN 04/20/17 05/20/17 History Oaw-Vqql-Ogcoe Acid 1 cap PO DAILY 04/20/17 05/20/17 History [-U Capsule (formulary)] Heparin Sod 1000 Unit/1Ml [Heparin 2.9 unit SQ BID 05/20/17 05/20/17 History Sodium] Allergies Allergy/AdvReac Type Severity Reaction Status Date / Time No Known Allergies Allergy Verified 05/20/17 06:34 Exam Osteopathic Statement: *. No significant issues noted on an osteopathic structural exam other than those noted in the History and Physical/Consult. - Vital Signs Vital signs: Vital Signs Temp Pulse Resp BP Pulse Ox 05/20/17 12:00 105 H 18 120/61 05/20/17 11:58 105 H 18 120/61 05/20/17 11:43 100 18 130/68 05/20/17 11:28 115 H 18 115/75 05/20/17 06:33 96.9 F L 113 H 18 121/78 99 Intake and Output 05/19/17 05/20/17 05/20/17 22:59 06:59 14:59 Output Total 200 Balance -200 Output: Estimated Blood Loss 200 Other: Weight 95.708 kg HEart: RRR Lungs: CTAB ABdomen: soft, nontender Extremeties:neg dar's Results Result Diagrams: 05/20/17 06:35 Abnormal Lab Results - Last 24 Hours (Table) 05/20/17 05/20/17 Range/Units 06:35 06:35 Hgb 10.7 L (11.4-16.0) gm/dL RDW 16.8 H (11.5-15.5) % APTT 32.6 H (22.0-30.0) sec Assessment and Plan (1) Normal labor Current Visit: Yes Status: Acute Code(s): O80 - ENCOUNTER FOR FULL-TERM UNCOMPLICATED DELIVERY; Z37.9 - OUTCOME OF DELIVERY, UNSPECIFIED SNOMED Code(s ): 98789874 Plan: 1.induction of labor with amniotomy and pitocin 2. anticipate normal vaginal delivery
--- NOTE | 2017-05-20 12:31 | P.PROBDLV ---
Vaginal Delivery Note - . Vaginal Delivery Note: 27-year-old presents at 39 weeks for induction of labor. Her cervix is 3- 4 centers diet, 70% effaced, and -2 station. She was not mine and heart tones were 135-140 with moderate variability and reactive. Amniotomy was performed at 7:49 AM, thin meconium fluid noted. Pitocin was also started. When patient was uncomfortable epidural was placed. Her cervix was completely dilated at 10:43 AM. She pushed, delivered a viable female infant over intact perineum under epidural anesthesia at 10:57 AM. Head delivered OA, nuchal cord 1 easily reduced, anterior shoulder which was the right shoulder, delivered gentle downward traction followed by posterior shoulder and rest of body. Nose and mouth bulb suctioned, cord clamped and cut, placed on mother's abdomen. Apgars 9, 9, weight 7 lbs. 5 oz. Placenta delivered spontaneously, intact with three-vessel cord. Vagina, cervix, perineum inspected. No lacerations noted. Estimated blood loss 200 mL. Mother and baby in stable condition.
[2017-05-20] MEDS: IBUPROFEN 600 MG TAB PO PRN (18:52)
[2017-05-20] MEDS ORDERED: SENNOSIDES-DOCUSATE SODIUM 1 EACH TAB PO SCH (20:00)
[2017-05-21] MEDS: IBUPROFEN 600 MG TAB PO PRN (05:46)
[2017-05-21 08:59] VITALS: BP 114/72; PULSE 98; RESP 17; TEMP 98.5
[2017-05-21] MEDS ORDERED: APIXABAN 5 MG TAB PO SCH (09:00)
--- NOTE | 2017-05-21 10:52 | P.DS ---
Providers Date of admission: 05/20/17 06:15 Expected date of discharge: 05/21/17 Attending physician: Connie Huff Primary care physician: Stated None - Discharge Diagnosis(es) (1) Normal labor Current Visit: Yes Status: Resolved (2) Normal vaginal delivery Current Visit: Yes Status: Acute (3) Pulmonary embolism Current Visit: No Status: Acute Hospital Course: Pt presented for induction of labor. She underwent a normal vaginal delivery. Her post course was uncomplicated. She did have a pulmonary embolus with this and was on heparin until the day before the induction. Dr Jeffrey had been following her and recommended she go on eliquis after delivery. She has been started on eliquis 10mg bid for 7 days and then the dose will be dropped to 5mg bid for the next 6 months. Pt has been counselled on the risks and benefits of being on a blood thinner and will follow with me and dr jeffrey out patient. Plan - Discharge Summary New Discharge Prescriptions: New Apixaban [Eliquis] 10 mg PO BID #26 tab No Action Uds-[id number]-Veqom Acid [-U Capsule (formulary)] 1 cap PO DAILY Acetaminophen Tab [Tylenol] 650 mg PO Q4H PRN PRN Reason: Pain Or Fever > 100.5 Heparin Sod 1000 Unit/1Ml [Heparin Sodium] 2.9 unit SQ BID Discharge Medication List Acetaminophen Tab [Tylenol] 650 mg PO Q4H PRN 04/20/17 [History] Zsy-[id number]-[id number] Acid [-U Capsule (formulary)] 1 cap PO DAILY 05/27 [History] Heparin Sod 1000 Unit/1Ml [Heparin Sodium] 2.9 unit SQ BID 05/20/17 [History] Apixaban [Eliquis] 10 mg PO BID #26 tab 05/21/17 [Rx] Follow up Appointment(s)/Referral(s): Connie Huff DO [Doctor of Osteopathic Medicine] - 6 Weeks
== END 2017-05-21 15:05 | disposition home or self-care (01) | DRG 560 ==
LOC: 4FBP 06:15
PROVIDERS: ADMIT Obstetrics & Gynecology; ATTEND Obstetrics & Gynecology
PROC: 3E033VJ Introduction of Other Hormone into Peripheral Vein, Percutaneous Approach (ICD-10-PCS; principal; 2017-05-20)
PROC: 10E0XZZ Delivery of Products of Conception, External Approach (ICD-10-PCS; 2017-05-20)
PROC: 3E0R3NZ Introduction of Analgesics, Hypnotics, Sedatives into Spinal Canal, Percutaneous Approach (ICD-10-PCS; 2017-05-20)
PROC: 00HU33Z Insertion of Infusion Device into Spinal Canal, Percutaneous Approach (ICD-10-PCS; 2017-05-20)
DX: O69.81X0 Labor and delivery complicated by cord around neck, without compression, not applicable or unspecified (principal); O88.22 Thromboembolism in childbirth; O77.0 Labor and delivery complicated by meconium in amniotic fluid; Z3A.39 39 weeks gestation of pregnancy; Z82.49 Family history of ischemic heart disease and other diseases of the circulatory system; Z37.0 Single live birth
CPT/HCPCS: 85025; 85610; 85730; 88307

== ENCOUNTER 2020-11-22 15:39 | Emergency (ER) | payer OTHER ==
[2020-11-22 15:43] VITALS: TEMP 98.6
[2020-11-22] MEDS ORDERED: SODIUM CHLORIDE 0.9% 1,000 ML IV STA (15:58)
--- NOTE | 2020-11-22 16:29 | XR ---
EXAMINATION TYPE: XR chest 2V DATE OF EXAM: 11/22/2020 COMPARISON: 06/17/2017 HISTORY: Chest pain TECHNIQUE: FINDINGS: Heart and mediastinum are normal. Lungs are clear of infiltrate. There is no heart failure. There are no hilar masses. IMPRESSION: No active cardiopulmonary disease. No adverse change compared to old exam. Normal heart.
[2020-11-22 16:53] LABS: Basophils % (A) 1 %; Eosinophils # (A) 0.1 k/uL (0-0.7); Eosinophils % (A) 2 %; HCT 36.3 % (34.0-46.0); HGB 12.9 gm/dL (11.4-16.0); Lymphocytes % (A) 24 %; MCH 31.4 pg (25.0-35.0); MCHC 35.5 g/dL (31.0-37.0); MCV 88.7 fL (80.0-100.0); Mean Platelet Volume 6.7; Monocytes # (A) 0.6 k/uL (0-1.0); Monocytes % (A) 7 %; Neutrophils # (A) 5.5 k/uL (1.3-7.7); Neutrophils % (A) 66 %; Platelet Count 276 k/uL (150-450); RBC 4.09 m/uL (3.80-5.40); RDW 13.2 % (11.5-15.5); WBC 8.4 k/uL (3.8-10.6)
[2020-11-22 17:03] LABS: ALT 12 U/L (4-34); AST 18 U/L (14-36); African American GFR (CKD) >90 (>60 ml/min/1.73 sqM); Albumin 4.2 g/dL (3.5-5.0); Alkaline Phosphatase 58 U/L (38-126); Anion Gap 7 mmol/L; Blood Urea Nitrogen 14 mg/dL (7-17); Calcium 9.2 mg/dL (8.4-10.2); Carbon Dioxide 25 mmol/L (22-30); Chloride 108 mmol/L (98-107); Glucose 101 mg/dL (74-99); Lipase 109 U/L (23-300); Magnesium 2.1 mg/dL (1.6-2.3); Non-African American GFR(CKD) >90 (>60 ml/min/1.73 sqM); Potassium 4.1 mmol/L (3.5-5.1); Sodium 140 mmol/L (137-145); Total Bilirubin 0.3 mg/dL (0.2-1.3); Total Protein 7.1 g/dL (6.3-8.2)
--- NOTE | 2020-11-22 17:06 | ED ---
Chest Pain HPI - General Chief Complaint: Chest Pain Stated Complaint: chest pain Time Seen by Provider: 11/22/20 15:47 Source: patient Mode of arrival: ambulatory Limitations: no limitations - History of Present Illness Initial Comments: Patience is a 30yo F with PMH of PE during in 2016 as well as COVID in October 2020. Patient presents to the emergency department today for evaluation of chest pain and palpitations. Patient reports that on of this week she had some pressure-like pain in her left chest that radiated to her left shou lder and arm. Pain lasts about 15 minutes and resolved. Patient has had some pleuritic pain since that time and also has noted that her heart is racing. Patient states she has been told in the past that she has a high heart rate but has felt that his been fast at rest for the past couple of days. She's had no fevers chills nausea vomiting cough. She reports she does not feel short of breath and does not feel similar to when she had a pulmonary wasn't. She did have COVID-19 last month - Related Data Home Medications Medication Instructions Recorded Confirmed No Known Home Medications 11/22/20 11/22/20 Allergies Allergy/AdvReac Type Severity Reaction Status Date / Time No Known Allergies Allergy Verified 11/22/20 16:42 Review of Systems ROS Statement: Those systems with pertinent positive or pertinent negative responses have been documented in the HPI. ROS Other: All systems not noted in ROS Statement are negative. EKG Findings - EKG Comments: EKG Findings:: EKG was obtained due to tachycardia, EKG was obtained 1550 rate is 122 rhythm is narrow complex regular tachycardia consistent with sinus tachycardia, normal axis, normal intervals, NV 142, QTc 4, QTC [address] elevations or depressions no evidence of ischemia or infarction. Past Medical History Past Medical History: No Reported History Additional Past Medical History / Comment(s): 2, para 1; history of one vaginal delivery. She's had good care with me since the first trimester. AB+, antibodies negative, rubella immune, treponema antibody negative, hepatitis B-, HIV nonreactive, toxo negative, normal 1 hour glucose tolerance test. Diagnosed with a pulmonary embolus around 34 weeks gestation. She was on Lovenox at first and then changed to heparin. GBS negative. History of Any Multi-Drug Resistant Organisms: None Reported Past Surgical History: No Surgical Hx Reported Past Anesthesia/Blood Transfusion Reactions: No Reported Reaction Past Psychological History: No Psychological Hx Reported Smoking Status: Never smoker Past Alcohol Use History: None Reported Past Drug Use History: None Reported - Past Family History Father Additional Family Medical History / Comment(s): Paternal grandfather with heart problems, AICD, and hypertension General Exam - General Exam Comments Initial Comments: Physical Exam GENERAL: Patient is well-developed and well-nourished. Patient is nontoxic and well- hydrated and is in no distress. HENT: Normocephalic, Atraumatic. EYES: PERRL, EOMI PULMONARY: Unlabored respirations. No audible rales rhonchi or wheezing was noted. CARDIOVASCULAR: Tachycardic, regular. ABDOMEN: Soft and nontender with normal bowel sounds. SKIN: Skin is clear with no lesions or rashes and otherwise unremarkable. : Deferred NEUROLOGIC: Patient is alert and oriented x3. Moving all extremities spontaneously MUSCULOSKELETAL: Normal extremities with adequate strength and full range of motion. No lower extremity swelling or edema. No calf tenderness. PSYCHIATRIC: Normal psychiatric evaluation. Limitations: no limitations Course Vital Signs 11/22/20 11/22/20 11/22/20 15:40 16:43 17:47 Temperature 98.6 F Pulse Rate 116 H 116 H 114 H Respiratory 18 18 16 Rate Blood Pressure 146/86 125/85 132/87 O2 Sat by Pulse 100 100 97 Oximetry 11/22/20 18:29 Temperature Pulse Rate 106 H Respiratory 18 Rate Blood Pressure 135/80 O2 Sat by Pulse 97 Oximetry Chest Pain [facility] Patient was seen and evaluated history is obtained from the patient Labs were obtained, troponin and d-dimer not elevated Chest x-ray was unremarkable Patient received IV fluids heart rate improvements and results were discussed with patient expresses relief is comfortable with plan for discharge home and outpatient follow-up Disposition Clinical Impression: Atypical chest pain, Tachycardia Disposition: HOME SELF-CARE Condition: Stable Instructions (If sedation given, give patient instructions): Chest Pain (ED) Is patient prescribed a controlled substance at d/c from ED?: No Referrals: Viet Ashley MD [Primary Care Provider] - 1-2 days
[2020-11-22 17:10] LABS: Appearance,Urine Clear (Clear); Bilirubin,Urine Negative (Negative); Blood,Urine Trace (Negative); Color,Urine Light Yellow; Glucose,Urine (UA) Negative (Negative); Ketones,Urine Negative (Negative); Leukocyte Esterase,Urine Negative (Negative); Mucus,Urine Rare /hpf; Nitrite,Urine Negative (Negative); PH, Urine 6.5 (5.0-8.0); Protein,Urine Negative (Negative); RBC,Urine 1 /hpf (0-5); Specific Gravity,Urine 1.015 (1.001-1.035); Squamous Epithelial Cell,Urine 1 /hpf (0-4); Urobilinogen,Urine <2.0 mg/dL (<2.0); WBC,Urine 1 /hpf (0-5)
[2020-11-22 17:17] LABS: D-Dimer 0.2 mg/L FEU (<0.60); INR 0.9 (<1.2); Partial Thromboplastin Time 22.9 sec (22.0-30.0); Prothrombin Time 9.6 sec (9.0-12.0)
[2020-11-22] MEDS ORDERED: SODIUM CHLORIDE 0.9% 1,000 ML IV ONE (17:44)
[2020-11-22 18:30] VITALS: BP 135/80; PULSE 106; RESP 18
== END 2020-11-22 18:59 | disposition home or self-care (01) ==
LOC: EC 15:39
DX: R07.89 Other chest pain (principal); R00.0 Tachycardia, unspecified
CPT/HCPCS: 36415; 71046; 80053; 81001; 83690; 83735; 83880; 84484; 85025; 85379; 85610; 85730; 93005; 96360; 96361; 99285

== ENCOUNTER → 2020-12-25 | Outpatient (CLI) | payer OTHER ==
--- NOTE | 2020-12-25 14:01 | US ---
EXAMINATION TYPE: US abdomen limited DATE OF EXAM: 12/25/2020 COMPARISON: NONE CLINICAL HISTORY: R10.816 Epigastic abdominal tenderness. Pain EXAM MEASUREMENTS: Liver Length: 16.2 cm Gallbladder Wall: .2 cm CBD: .4 cm Right Kidney: 10.3 x 4.1 x cm limited views obtained. Pancreas: Tail obscured by overlying bowel gas Liver: wnl Gallbladder: No stones seen Evidence for sonographic Hall's sign: No CBD: wnl Right Kidney: Limited views obtained. IMPRESSION: Limited examination without definite sonographic abnormality seen.
== END | disposition home or self-care (01) ==
LOC: RADUSWWP 12:33
PROVIDERS: ATTEND Internal Medicine
DX: R10.816 Epigastric abdominal tenderness (principal)
CPT/HCPCS: 76705

== ENCOUNTER 2022-10-03 18:50 | Emergency (ER) | payer OTHER ==
[2022-10-03] MEDS ORDERED: ACETAMINOPHEN TAB 500 MG TAB PO STA (19:22)
--- NOTE | 2022-10-03 19:26 | ED ---
General Adult HPI - General Chief complaint: Upper Respiratory Infection Stated complaint: Palpitations Time Seen by Provider: 10/03/22 19:01 Source: patient, RN notes reviewed Mode of arrival: ambulatory Limitations: no limitations - History of Present Illness Initial comments: Patient is a pleasant 32-year-old female presenting to the emergency department with concerns with palpitations. Onset of symptoms was a couple days ago. Patient has been sick for the past week. Patient does have sore throat and nasal congestion and dry cough. No dyspnea. No history of similar symptoms previously. Patient did notice a white spot in the back of her throat. Patient was tested negative for strep prior to arrival. No chest pain. No leg pain or leg swelling. - Related Data Previous Rx's Medication Instructions Recorded Azithromycin [Zithromax Z Pack] 250 mg PO DAILY #6 tab 10/03/22 Allergies Allergy/AdvReac Type Severity Reaction Status Date / Time No Known Allergies Allergy Verified 10/03/22 20:26 Review of Systems ROS Statement: Those systems with pertinent positive or pertinent negative responses have been documented in the HPI. ROS Other: All systems not noted in ROS Statement are negative. Constitutional: Reports: as per HPI, fever, chills Eyes: Denies: eye pain ENT: Reports: throat pain, congestion Respiratory: Reports: cough. Denies: dyspnea Cardiovascular: Reports: palpitations. Denies: chest pain Endocrine: Denies: fatigue Gastrointestinal: Denies: abdominal pain Genitourinary: Denies: dysuria Musculoskeletal: Denies: back pain Skin: Denies: rash Neurological: Denies: weakness Past Medical History Past Medical History: No Reported History Additional Past Medical History / Comment(s): 2, para 1; history of one vaginal delivery. She's had good care with me since the first trimester. AB+, antibodies negative, rubella immune, treponema antibody negative, hepatitis B-, HIV nonreactive, toxo negative, normal 1 hour glucose tolerance test. Diagnosed with a pulmonary embolus around 34 weeks gestation. She was on Lovenox at first and then changed to heparin. GBS negative. History of Any Multi-Drug Resistant Organisms: None Reported Past Surgical History: No Surgical Hx Reported Past Anesthesia/Blood Transfusion Reactions: No Reported Reaction Past Psychological History: No Psychological Hx Reported Smoking Status: Never smoker Past Alcohol Use History: None Reported Past Drug Use History: None Reported - Past Family History Father Additional Family Medical History / Comment(s): Paternal grandfather with heart problems, AICD, and hypertension General Exam Limitations: no limitations General appearance: alert, in no apparent distress Head exam: Present: normocephalic Eye exam: Present: normal appearance ENT exam: Present: other (Mild pharyngeal erythema. Each tonsil does have small purulent area) Neck exam: Present: normal inspection. Absent: tenderness, meningismus, lymphadenopathy Respiratory exam: Present: normal lung sounds bilaterally Cardiovascular Exam: Present: tachycardia GI/Abdominal exam: Present: soft. Absent: tenderness Extremities exam: Present: normal inspection. Absent: pedal edema, calf tenderness Neurological exam: Present: alert Psychiatric exam: Present: normal affect, normal mood Skin exam: Present: normal color Course Vital Signs 10/03/22 10/03/22 18:56 20:00 Temperature 99.9 F H Pulse Rate 154 H 121 H Respiratory 20 18 Rate Blood Pressure 135/83 122/83 O2 Sat by Pulse 99 98 Oximetry - Reevaluation(s) Reevaluation #1: 10/03/22 19:37 Repeat EKG also interpreted by myself shows sinus tachycardia 122. MO 153. QRS 73. QT 288. QTC 360. Normal axis. Normal QRS. No acute ST change. EKG Findings - EKG Results: EKG: interpreted by HANNA, sinus rhythm, normal axis, normal QRS, normal ST/T EKG shows: tachycardia Medical Decision Making - Medical Decision Making Was pt. sent in by a medical professional or institution (, PA, COUNSELOR MANAGER, urgent care, hospital, or snf...) When possible be specific @ -Patient sent from urgent care Did you speak to anyone other than the patient for history (EMS, parent, family, police, friend...)? What history was obtained from this source @ -No Did you review nursing and triage notes (agree or disagree)? Why? @ -I reviewed and agree with nursing and triage notes Were old charts reviewed (outside hosp., previous admission, EMS record, old EKG, old radiological studies, urgent care reports/EKG's, snf records)? Report findings @ -No old charts were reviewed Differential Diagnosis (chest pain, altered mental status, abdominal pain women, abdominal pain men, vaginal bleeding, weakness, fever, dyspnea, syncope, headache, dizziness, GI bleed, back pain, seizure, CVA, palpatations, mental health)? @ -Differential Dyspnea: Coronary syndrome, arrhythmia, tamponade, asthma, COPD, pulmonary embolism, pneumonia, pneumothorax, pulmonary effusion, anaphylaxis, diabetic ketoacidosis, flailed chest, pulmonary contusion, diaphragmatic rupture, anemia, neuromuscular, this is not meant to be an all-inclusive list. EKG interpreted by me (3pts min.). @ -As above X-rays interpreted by me (1pt min.). @ -Chest x-ray interpreted by myself shows left lower lobe infiltrate CT interpreted by me (1pt min.). @ -None done U/S interpreted by me (1pt. min.). @ -None done What testing was considered but not performed or refused? (CT, X-rays, U/S, labs)? Why? @ -None What meds were considered but not given or refused? Why? @ -None Did you discuss the management of the patient with other professionals (professionals i.e. , PA, COUNSELOR MANAGER, lab, RT, psych nurse, social services director, telemetry technician, teacher, chief program officer, correctional counselor/case manager)? Give summary @ -No Was smoking cessation discussed for >3mins.? @ -No Was critical care preformed (if so, how long)? @ -No Were there social determinants of health that impacted care today? How? (Homelessness, low income, unemployed, alcoholism, drug addiction, transportation, low edu. Level, literacy, decrease access to med. care, retirement, rehab)? @ -No Was there de-escalation of care discussed even if they declined (Discuss DNR or withdrawal of care, Hospice)? DNR status @ -No What co-morbidities impacted this encounter? (DM, HTN, Smoking, COPD, CAD, Cancer, CVA, ARF, Chemo, Hep., AIDS, mental health diagnosis, sleep apnea, morbi d obesity)? @ -None Was patient admitted / discharged? Hospital course, mention meds given and route, prescriptions, significant lab abnormalities, going to OR and other pertinent info. @ -Patient reevaluated and feeling much better. Heart rate 104. Patient updated on results and need for follow-up. Patient is comfortable with discharge home. Patient has been provided IV antibiotics prior to discharge. Undiagnosed new problem with uncertain prognosis? @ -No Drug Therapy requiring intensive monitoring for toxicity (Heparin, Nitro, Insulin, Cardizem)? @ -No Were any procedures done? @ -No Diagnosis/symptom? @ -[Pneumonia Acute, or Chronic, or Acute on Chronic? @ -Acute Uncomplicated (without systemic symptoms) or Complicated (systemic symptoms)? @ -Acute by tachycardia however this has resolved with antipyretic and IV fluid Side effects of treatment? @ -No Exacerbation, Progression, or Severe Exacerbation? @ -No Poses a threat to life or bodily function? How? (Chest pain, [place], [place], pneumonia, PE, COPD, DKA, ARF, appy, cholecystitis, CVA, Diverticulitis, Homicidal, Suicidal, threat to staff... and all critical care pts) @ -No - Lab Data Result diagrams: 10/03/22 19:59 10/03/22 19:59 Lab Results 10/03/22 10/03/22 10/03/22 Range/Units 19:59 19:59 19:59 WBC (3.8-10.6) k/uL RBC (3.80-5.40) m/uL Hgb (11.4-16.0) gm/dL Hct (34.0-46.0) % MCV (80.0-100.0) fL MCH (25.0-35.0) pg MCHC (31.0-37.0) g/dL RDW (11.5-15.5) % Plt Count (150-450) k/uL MPV Neutrophils % % Lymphocytes % % Monocytes % % Eosinophils % % Basophils % % Neutrophils # (1.3-7.7) k/uL Lymphocytes # (1.0-4.8) k/uL Monocytes # (0-1.0) k/uL Eosinophils # (0-0.7) k/uL Basophils # (0-0.2) k/uL Sodium (137-145) mmol/L Potassium (3.5-5.1) mmol/L Chloride (98-107) mmol/L Carbon Dioxide (22-30) mmol/L Anion Gap mmol/L BUN (7-17) mg/dL Creatinine (0.52-1.04) mg/dL Est GFR (CKD-EPI)AfAm (>60 ml/min/1.73 sqM) Est GFR (CKD-EPI)NonAf (>60 ml/min/1.73 sqM) Glucose (74-99) mg/dL Plasma Lactic Acid Lamonte (0.7-2.0) mmol/L Calcium (8.4-10.2) mg/dL Total Bilirubin (0.2-1.3) mg/dL AST (14-36) U/L ALT (4-34) U/L Alkaline Phosphatase (38-126) U/L Total Protein (6.3-8.2) g/dL Albumin (3.5-5.0) g/dL Heterophile Antibody Negative (Negative) Influenza Type A (PCR) Not Detected (Not Detectd) Influenza Type B (PCR) Not Detected (Not Detectd) RSV (PCR) Not Detected (Not Detectd) SARS-CoV-2 (PCR) Not Detected (Not Detectd) Group A Strep (PCR) NOT DETECTED (Not Detectd) 10/03/22 10/03/22 10/03/22 Range/Units 19:59 19:59 19:59 WBC 7.9 (3.8-10.6) k/uL RBC 4.30 (3.80-5.40) m/uL Hgb 12.3 (11.4-16.0) gm/dL Hct 37.1 (34.0-46.0) % MCV 86.3 (80.0-100.0) fL MCH 28.6 (25.0-35.0) pg MCHC 33.2 (31.0-37.0) g/dL RDW 12.6 (11.5-15.5) % Plt Count 246 (150-450) k/uL MPV 7.2 Neutrophils % 76 % Lymphocytes % 14 % Monocytes % 7 % Eosinophils % 0 % Basophils % 0 % Neutrophils # 6.0 (1.3-7.7) k/uL Lymphocytes # 1.1 (1.0-4.8) k/uL Monocytes # 0.5 (0-1.0) k/uL Eosinophils # 0.0 (0-0.7) k/uL Basophils # 0.0 (0-0.2) k/uL Sodium 138 (137-145) mmol/L Potassium 3.9 (3.5-5.1) mmol/L Chloride 102 (98-107) mmol/L Carbon Dioxide 26 (22-30) mmol/L Anion Gap 10 mmol/L BUN 8 (7-17) mg/dL Creatinine 0.51 L (0.52-1.04) mg/dL Est GFR (CKD-EPI)AfAm >90 (>60 ml/min/1.73 sqM) Est GFR (CKD-EPI)NonAf >90 (>60 ml/min/1.73 sqM) Glucose 98 (74-99) mg/dL Plasma Lactic Acid Lamonte 1.1 (0.7-2.0) mmol/L Calcium 8.9 (8.4-10.2) mg/dL Total Bilirubin 0.4 (0.2-1.3) mg/dL AST 20 (14-36) U/L ALT 31 (4-34) U/L Alkaline Phosphatase 73 (38-126) U/L Total Protein 7.1 (6.3-8.2) g/dL Albumin 4.0 (3.5-5.0) g/dL Heterophile Antibody (Negative) Influenza Type A (PCR) (Not Detectd) Influenza Type B (PCR) (Not Detectd) RSV (PCR) (Not Detectd) SARS-CoV-2 (PCR) (Not Detectd) Group A Strep (PCR) (Not Detectd) Disposition Clinical Impression: Pneumonia Disposition: HOME SELF-CARE Condition: Stable Instructions (If sedation given, give patient instructions): Bacterial Pneumonia (ED) Additional Instructions: Please do follow-up with your primary care physician in the next day or 2 for recheck. Return for difficulty breathing, increased heart rate, worsening symptoms or any other concerns. Prescription for antibiotic's has been sent to pharmacy, please start this tomorrow morning. Prescriptions: Azithromycin [Zithromax Z Pack] 250 mg PO DAILY #6 tab Is patient prescribed a controlled substance at d/c from ED?: No Referrals: Carlos Rodriguez MD [STAFF PHYSICIAN] - 1-2 days Time of Disposition: 21:19
[2022-10-03] MEDS: SODIUM CHLORIDE 0.9% 500 ML 500 ML IV SCH ×2 (19:45→20:59)
[2022-10-03 20:00] VITALS: RESP 18
[2022-10-03 20:23] LABS: Basophils % (A) 0 %; Eosinophils % (A) 0 %; HCT 37.1 % (34.0-46.0); HGB 12.3 gm/dL (11.4-16.0); Lymphocytes # (A) 1.1 k/uL (1.0-4.8); Lymphocytes % (A) 14 %; MCH 28.6 pg (25.0-35.0); MCHC 33.2 g/dL (31.0-37.0); MCV 86.3 fL (80.0-100.0); Mean Platelet Volume 7.2; Monocytes # (A) 0.5 k/uL (0-1.0); Monocytes % (A) 7 %; Neutrophils % (A) 76 %; Platelet Count 246 k/uL (150-450); RDW 12.6 % (11.5-15.5); WBC 7.9 k/uL (3.8-10.6)
--- NOTE | 2022-10-03 20:27 | XR ---
EXAMINATION TYPE: XR chest 2V DATE OF EXAM: 10/03/2022 COMPARISON: NONE HISTORY: Cough and congestion TECHNIQUE: 2 view FINDINGS: There is some airspace infiltrate left lower lobe. The right lung is clear. Heart and media stinum are normal. There are chest leads. IMPRESSION: There is left lower lobe pneumonia which is new compared to old exam.
[2022-10-03 20:33] LABS: ALT 31 U/L (4-34); AST 20 U/L (14-36); African American GFR (CKD) >90 (>60 ml/min/1.73 sqM); Alkaline Phosphatase 73 U/L (38-126); Anion Gap 10 mmol/L; Blood Urea Nitrogen 8 mg/dL (7-17); Calcium 8.9 mg/dL (8.4-10.2); Carbon Dioxide 26 mmol/L (22-30); Chloride 102 mmol/L (98-107); Glucose 98 mg/dL (74-99); Non-African American GFR(CKD) >90 (>60 ml/min/1.73 sqM); Potassium 3.9 mmol/L (3.5-5.1); Sodium 138 mmol/L (137-145); Total Bilirubin 0.4 mg/dL (0.2-1.3); Total Protein 7.1 g/dL (6.3-8.2)
[2022-10-03] MEDS ORDERED: cefTRIAXone IN SWFI 1,000 MG/10 ML SYRINGE IVP STA (21:00)
[2022-10-03] MEDS ORDERED: AZITHROMYCIN 500 MG TAB PO STA (21:17)
[2022-10-03 21:35] VITALS: BP 127/79; PULSE 101; TEMP 98.1
== END 2022-10-03 21:35 | disposition home or self-care (01) ==
LOC: EC 18:50
DX: J18.9 Pneumonia, unspecified organism (principal); Z20.822 Contact with and (suspected) exposure to COVID-19
CPT/HCPCS: 36415; 93005; 87651; 80053; 83605; 85025; 86308; 87040; 87636; 71046; 99285; 96374; 96361 ×2; J0696